=== PATIENT | female | born 1990 | race Caucasian/White ===

== ENCOUNTER 2021-11-10 07:27 | Inpatient (IN) ==
[2021-11-10] MEDS ORDERED: OXYTOCIN 30 UNITS/500 ML BAG IV PRN ×2 (09:30→19:33)
[2021-11-10] MEDS ORDERED: LACTATED RINGER'S 1,000 ML IV PRN (09:30)
--- NOTE | 2021-11-10 09:36 | History & Physical Report ---
Date of Service November 10, 2021 Assessment & Plan (1) 41 weeks gestation of : Plan: Admit, routine labs, misoprostol 25 mcg sublingually every 4 hours, epidural with patient request, plan for Pitocin or AROM later Anticipate spontaneous vaginal delivery Admission and Anticipated Discharge Date Admission Date: November 10, 2021 History of Present Illness Chief Complaint: IOL Primary Care Provider: NO PCP Patient is a 31-year-old -0-0-1 at 41 weeks and 3 days who was admitted for induction of labor for late term gestation. On presentation she has irregular contractions, no leaking of fluid or vaginal bleeding. Notes good movement. Denies headache, blurry vision, right upper quadrant or epigastric pain. Otherwise feeling well. No complications this Allergies Allergy/AdvReac Type Severity Reaction Status Date / Time No Known Allergies Allergy Verified 06/15/18 04:15 Home Medications Medication Instructions Recorded Confirmed Type iron,carbonyl 65 mg-vitamin C 125 1 tab PO DAILY 11/10/21 11/10/21 History mg tablet,delayed release (Vitron-C) prenat.vits,darek,ney-gfcd-jmweg 1 tab PO DAILY 11/10/21 11/10/21 History Patient History Surgical History H/O wisdom tooth extraction S/P FESS (functional endoscopic sinus surgery) 07/2020 Social History Smoking Status: Never smoker Second Hand Exposure: No; Hx Alcohol Use: No Hx Substance Use: No Preferred Language: Arabic Communication Ability: Effective Inspector Wreath Required: No Beliefs That Will Affect Care: None marital status: Current Living Situation: Family Current Living Situation Comment: spouse and 3y/o daughter buddy Other Information That Helps Us Care for You: No Feels Safe at Home: Yes Safety Concerns: Feels Safe At This Time Assistive Devices: Contacts 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 Review of Systems All systems reviewed & are unremarkable except as noted in HPI & below Physical Exam Constitutional: WD/WN, vitals as above Respiratory: normal respiratory effort, lungs clear to auscultation Cardiovascular: RRR, no murmur, no edema Gastrointestinal (Abdomen): normal bowel sounds, soft, nontender, no hepatosplenomegaly Genitourinary: no vaginal lesions, no adnexal mass normal external appea juan OB Exam Abdomen: + fundal height, + heart tones, + vertex, + estimated weight and + irregular contractions Manual OB Exam: + cer vical dilation, + cervical effacement and + station Cx 2-3/30/-3 Results & Data ([facility]) Vital Signs (Past 12 Hours) Vital Signs Temp Pulse Resp BP 11/10/21 07:40 36.7 C 97 H 18 122/80 11/10/21 07:35 97 H 122/80 Monitoring External Monitor FHT: Baseline 140, moderate variability, positive accelerations no decelerations, category 1 Tocodynamometer Irregular contraction
[2021-11-10] MEDS: miSOPROStoL 25 MCG TAB SL SCH ×3 (09:51→17:25)
[2021-11-10 09:57] LABS: Hematocrit (blood only) 38.4 % (37-47); Hemoglobin 13.2 g/dL (12.0-16.0); Mean Corpuscular Hemoglobin 31.7 pg (25-34); Mean Corpuscular Hgb Conc 34.4 g/dL (32-36); Mean Corpuscular Volume 92.1 fL (80-100); Mean Platelet Volume 10.6 fL (7.4-10.4); Platelet Count 189 K/uL (130-400); RDW Standard Deviation 47.3 fL (36.4-46.3); Red Blood Count 4.17 M/uL (4.2-5.4); White Blood Count 7.94 K/uL (4.8-10.8)
--- NOTE | 2021-11-10 14:04 | Labor Progress Brief Note ---
Date of Service November 10, 2021 Subjective Doing well, mild contraction pain no other complaint at this time Assessment & Plan (1) 41 weeks gestation of : Plan: Cara too much at this time to give another dose of misoprostol, epidural with patient request, plan for Pitocin or AROM later Anticipate spontaneous vaginal delivery Admission and Anticipated Discharge Date Admission Date: November 10, 2021 Physical Exam Genitourinary: heart tracing: Baseline 140, moderate variability, positive accelerations, no decelerations, category 1 Tocometer: Contractions every 2 to 3 minutes Cervix: 3 cm checked by RN Results & Data ([facility]) Vital Signs (Past 12 Hours) Vital Signs Temp Pulse Pulse Resp BP 11/10/21 10:54 36.9 C 61 18 11/10/21 10:53 61 125/80 11/10/21 07:40 36.7 C 97 H 18 122/80 11/10/21 07:35 97 H 122/80
--- NOTE | 2021-11-10 17:45 | Labor Progress Brief Note ---
Date of Service November 10, 2021 Subjective Doing well, mild contraction pain. Declines epidural at this time Agreeable for AROM Assessment & Plan (1) 41 weeks gestation of : Plan: Will start oxytocin if patient has no cervical change, or hypotonic uterine contractions Anticipate spontaneous vaginal delivery Admission and Anticipated Discharge Date Admission Date: November 10, 2021 Physical Exam Physical Exam: Heart tracing: Baseline 140 with moderate variability, positive accelerations no decelerations, category 1 tracing Tocometer: Contractions every 2 minutes Genitourinary: Cervix: 4/80/-1, AROM performed with clear fluid, no cords felt, no complication Results & Data ([facility]) Vital Signs (Past 12 Hours) Vital Signs Temp Pulse Pulse Resp BP 11/10/21 14:57 36.7 C 77 18 11/10/21 14:56 77 130/82 11/10/21 10:54 36.9 C 61 18 11/10/21 10:53 61 125/80 11/10/21 07:40 36.7 C 97 H 18 122/80 11/10/21 07:35 97 H 122/80
[2021-11-10] MEDS ORDERED: LIDOCAINE 1% LOCAL 20 ML VIAL ONE (18:56)
[2021-11-10] MEDS ORDERED: BUTORPHANOL TARTRATE 1 MG/ML VIAL IV STA (19:10)
[2021-11-10] MEDS ORDERED: BUTORPHANOL TARTRATE 1 MG/ML VIAL ONE (19:11)
[2021-11-10] MEDS ORDERED: ceFAZolin 1000MG 1,000 MG/7.5 ML SYR IV ONE (19:30)
[2021-11-10] MEDS ORDERED: IBUPROFEN 600 MG TAB PO PRN (19:33)
[2021-11-10] MEDS ORDERED: ACETAMINOPHEN 325 MG TAB PO PRN (19:33)
[2021-11-10] MEDS ORDERED: bisacodyL 10 MG SUPP PR PRN (19:33)
[2021-11-10] MEDS ORDERED: DIPHTHERIA/TETANUS/PERTUSSIS 0.5 ML SYR/VIAL IM ONE (19:33)
[2021-11-10] MEDS ORDERED: HYDROCORTISONE ACETATE 25 MG SUPP PR PRN (19:33)
[2021-11-10] MEDS ORDERED: oxyCODONE/ACETAMINOPHEN 5mg/325mg TAB PO PRN (19:33)
[2021-11-10] MEDS ORDERED: BENZOCAINE 20% AER SPR 82.5 GM CAN EXT PRN (19:33)
--- NOTE | 2021-11-10 19:35 | Delivery Summary ---
Vaginal Delivery Summary Date of Service November 10, 2021 Vaginal Delivery Summary Delivery Note History synopsis: Patient is a 31-year-old -0-0-1 who was admitted at 41 weeks and 3 days for induction of labor for late term gestation. She received 1 dose of misoprostol 25 mcg sublingually, and continue to contract throughout the day. AROM was performed noted clear fluid and she was 4 cm dilated. She progressed to complete and I was called for delivery Delivery Summary: Patient was placed in the dorsal lithotomy position. She was prepped and draped in the usual sterile fashion. Upon maternal pushing the head was delivered atraumatically followed by the anterior shoulders, posterior shoulders then the remainder of the infants body. The infants mouth and nose were bulb suction below the level of the perineum. A male infant was delivered at 1855, weight pending with APGARS of 8 at 1 minute and 9 at 5 minutes. The umbilical cord was clamped times two and cut at 1 minute of delayed cord clamping The infant was handed off to the awaiting nursing staff. Cord blood gases were obtained. During active third stage of labor, noted partial cord avulsion, and the remainder of placenta could not be delivered intact. Therefore manual removal of placenta was performed after dose of Stadol was given to patient for pain control. The placenta delivered intact with three vessel cord at 1921. Placenta was sent to pathology for a hold. Thirty units of Pitocin were added to the IV fluid and allowed to run freely. Uterine massage was performed until uterus was deemed firm. Upon inspection of the perineum, vagina and cervix were intact. 1% Lidocaine was injected along the site of repair. Second degree laceration was noted which was repaired with 3-0 vicryl in the usual fashion. Upon re-inspection the patient was hemostatic. Uterus again massaged and found to be firm. Needle and sponge counts were correct. Patient was stable and allowed to recover in L&D room. was stable and remained in room with mother in the Family Care Unit. Will give patient 1 g of Ancef for prophylaxis after manual removal of placenta
[2021-11-11] MEDS: DOCUSATE SODIUM 100 MG CAP PO SCH ×3 (06:09→19:53)
[2021-11-11 06:10] LABS: Hematocrit (blood only) 33.5 % (37-47); Hemoglobin 11.9 g/dL (12.0-16.0); Mean Corpuscular Hemoglobin 32.5 pg (25-34); Mean Corpuscular Hgb Conc 35.5 g/dL (32-36); Mean Corpuscular Volume 91.5 fL (80-100); Mean Platelet Volume 10.4 fL (7.4-10.4); Platelet Count 164 K/uL (130-400); RDW Coefficient of Variation 13.9 % (11.5-14.5); RDW Standard Deviation 45.9 fL (36.4-46.3); Red Blood Count 3.66 M/uL (4.2-5.4); White Blood Count 11.73 K/uL (4.8-10.8)
--- NOTE | 2021-11-11 07:54 | Obstetrical Progress Note ---
Date of Service November 11, 2021 Assessment & Plan Admission and Anticipated Discharge Date Admission Date: November 10, 2021 Subjective Patient is seen and examined. She feels well, no complaints. Ambulating without dizziness Voiding without difficulty Tolerating regular diet with out N&V Bleeding is minimal No fever/ chills/ CP/ SOB/ N&V/ Leg pain Breast feeding without problems Vital Signs Temp Pulse Pulse Resp BP BP Pulse Ox 11/11/21 07:45 36.9 C 93 H 18 118/79 97 11/11/21 04:30 36.7 C 100 H 18 106/72 11/10/21 23:56 36.7 C 72 18 118/66 11/10/21 22:09 36.4 C L 68 16 106/64 11/10/21 21:27 85 118/68 11/10/21 21:12 90 117/65 11/10/21 20:57 91 H 18 115/64 11/10/21 20:42 84 114/60 11/10/21 20:27 90 98/69 L 11/10/21 20:16 74 117/68 11/10/21 20:12 18 11/10/21 19:58 86 126/65 11/10/21 19:57 16 Lab Results 11/10/21 11/10/21 11/10/21 Range/Units 09:42 09:42 09:42 WBC 7.94 (4.8-10.8) K/uL RBC 4.17 L (4.2-5.4) M/uL Hgb 13.2 (12.0-16.0) g/dL Hct 38.4 (37-47) % MCV 92.1 (80-100) fL MCH 31.7 (25-34) pg MCHC 34.4 (32-36) g/dL RDW Std Deviation 47.3 H (36.4-46.3) fL RDW Coeff of Tania 14.0 (11.5-14.5) % Plt Count 189 (130-400) K/uL MPV 10.6 H (7.4-10.4) fL RPR Nonreactive (Nonreactive) Blood Type A Positive Antibody Screen NEGATIVE 11/11/21 Range/Units 05:55 WBC 11.73 H (4.8-10.8) K/uL RBC 3.66 L (4.2-5.4) M/uL Hgb 11.9 L (12.0-16.0) g/dL Hct 33.5 L (37-47) % MCV 91.5 (80-100) fL MCH 32.5 (25-34) pg MCHC 35.5 (32-36) g/dL RDW Std Deviation 45.9 (36.4-46.3) fL RDW Coeff of Tania 13.9 (11.5-14.5) % Plt Count 164 (130-400) K/uL MPV 10.4 (7.4-10.4) fL RPR (Nonreactive) Blood Type Antibody Screen PE: General: Alert, orientedx3, NAD Abd: soft, NT, fundus firm, below Umbilicus Perineum intact, Lochia rubra minimal Ext; NT, no edema AP: 31 yo s/p , ppd# 1 VSS Afebrile doing well Continue routine care Desires d/c this evening All questions were answered Discussed when to call D/C home if baby will be discharged and f/u in office Results & Data ([facility]) Vital Signs (Past 12 Hours) Vital Signs Temp Pulse Pulse Resp BP BP Pulse Ox 11/11/21 07:45 36.9 C 93 H 18 118/79 97 11/11/21 04:30 36.7 C 100 H 18 106/72 11/10/21 23:56 36.7 C 72 18 118/66 11/10/21 22:09 36.4 C L 68 16 106/64 11/10/21 21:27 85 118/68 11/10/21 21:12 90 117/65 11/10/21 20:57 91 H 18 115/64 11/10/21 20:42 84 114/60 11/10/21 20:27 90 98/69 L 11/10/21 20:16 74 117/68 11/10/21 20:12 18 11/10/21 19:58 86 126/65 11/10/21 19:57 16
[2021-11-11] MEDS ORDERED: PRENATAL VITAMIN 1 TAB PO SCH (08:00)
[2021-11-11] MEDS ORDERED: FERROUS SULFATE 325 MG TAB PO SCH (08:00)
[2021-11-11] MEDS: FERROUS SULFATE 325 MG TAB PO SCH (09:58)
[2021-11-11] MEDS: PRENATAL VITAMIN 1 TAB PO SCH (09:58)
[2021-11-11] MEDS: ASCORBIC ACID 500 MG TAB PO SCH (10:50)
[2021-11-11] MEDS ORDERED: bisacodyL 5 MG TABEC PO SCH (20:00)
[2021-11-12 07:02] LABS: Hematocrit (blood only) 32.7 % (37-47); Hemoglobin 10.9 g/dL (12.0-16.0)
--- NOTE | 2021-11-12 08:10 | Obstetrical Progress Note ---
Date of Service November 12, 2021 Subjective Ambulation: ambulating normally Voiding: no voiding problems Passing Gas:: Yes Diet Tolerance:: regular diet Feeding Type:: breast feeding Current Pain Level(1-10): 0 Physical Exam Constitutional WD/WN, vitals as above abdomen soft and non-tender fundus firm no edema neg Olive's for d/c Results & Data ([facility]) Vital Signs (Past 12 Hours) Vital Signs Temp Pulse Resp BP Pulse Ox 11/12/21 07:30 36.5 C 82 18 114/72 11/11/21 23:25 36.3 C L 69 20 114/72 99
[2021-11-12] MEDS: ASCORBIC ACID 500 MG TAB PO SCH (08:51)
[2021-11-12] MEDS: PRENATAL VITAMIN 1 TAB PO SCH (08:51)
[2021-11-12] MEDS: FERROUS SULFATE 325 MG TAB PO SCH (08:51)
[2021-11-12] MEDS: DOCUSATE SODIUM 100 MG CAP PO SCH (08:51)
== END 2021-11-12 10:35 | disposition home or self-care (01) | DRG 807 ==
LOC: 4S1 07:27 → 4E2 22:27
DX: O70.1 Second degree perineal laceration during delivery; Z3A.41 41 weeks gestation of pregnancy; Z37.0 Single live birth; O48.0 Post-term pregnancy